=== PATIENT | male | born 1995 | race Caucasian/White ===

== ENCOUNTER 2017-04-19 07:27 | Emergency (ER) | payer BC ==
[~2017-04-19] VITALS: Ht 165.1 cm; Wt 79.0 kg
[~2017-04-19 07:27] MED LIST: PROZ20CA11 PO; RISP0.5T2 PO; Z.0.NO CURRENT MEDS
[2017-04-19 07:30] VITALS: BP 135/92; PULSE 86; RESP 16; TEMP 98.7; O2SAT 96
--- NOTE | 2017-04-19 08:12 | PD ---
HPI Chief Complaint: Cold / Flu Symptoms Time Seen by Provider: 07:58 Travel History International Travel<30 days: No Contact w/Intl Traveler<30days: No Traveled to known affect area: No History of Present Illness HPI This 22-year-old male is complaining of sore throat. He says he started having a sore throat around 5:00 in the afternoon. It has bothered him throughout the night. He's not sure if he is had a fever. He says multiple friends with the flu. He's had a mild cough. PFSH Past Medical History Cancer: No Cardiovascular Problems: No Diabetes: No Headaches: No Migraines: No Seizures: No Thyroid Disease: No Ulcer: No Past Surgical History Section: No Social History Alcohol Use: No Tobacco Use: Yes Substance Use: Yes (MARIJUANA ABOUT A YEAR AGO) Allergies-Medications (Allergen,Severity, Reaction): Coded Allergies: No Known Allergies (Unverified Adverse Reaction, Unknown, 04/19/17) Reported Meds & Prescriptions Reported Meds & Active Scripts Active Reported Prozac (Fluoxetine HCl) 20 Mg Cap 20 Mg PO Q 7AM Risperdal (Risperidone) 0.5 Mg Tab 0.5 Mg PO Q 7 AM AND 16 No Current Meds (Miscellaneous Medication) Misc Review of Systems General / Constitutional: No: Fever, Chills Eyes: No: Diploplia, Blurred Vision HENT: Positive: Sore Throat, No: Headaches Cardiovascular: No: Chest Pain or Discomfort Respiratory: Positive: Cough Gastrointestinal: No: Vomiting, Diarrhea Genitourinary: No: Frequency, Dysuria Musculoskeletal: No: Myalgias, Arthralgias Skin: No Rash, No Itching Endocrine: No: Heat Intolerance, Cold Intolerance Hematologic/Lymphatic: No: Easy Bruising Physical Exam Narrative GENERAL: Well-developed male SKIN: Focused skin assessment warm/dry. HEAD: Atraumatic. Normocephalic. EYES: Pupils equal and round. No scleral icterus. No injection or drainage. ENT: No nasal bleeding or discharge. Mucous membranes pink and moist. Posterior pharynx is erythematous with some exudate NECK: Trachea midline. No JVD. CARDIOVASCULAR: Regular rate and rhythm. No murmur appreciated. RESPIRATORY: No accessory muscle use. Clear to auscultation. Breath sounds equal bilaterally. GASTROINTESTINAL: Abdomen soft, non-tender, nondistended. Hepatic and splenic margins not palpable. MUSCULOSKELETAL: No obvious deformities. No clubbing. No cyanosis. No edema. NEUROLOGICAL: Awake and alert. No obvious cranial nerve deficits. Motor grossly within normal limits. Normal speech. PSYCHIATRIC: Appropriate mood and affect; insight and judgment normal. Data Data Last Documented VS Vital Signs Date Time Temp Pulse Resp B/P (MAP) Pulse Ox O2 Delivery O2 Flow Rate FiO2 04/19/17 07:30 98.7 86 16 135/92 (106) 96 Orders Orders Group A Rapid Strep Screen (04/19/17 07:54) Influenzae A/B Antigen (04/19/17 08:02) MDM Medical Decision Making Medical Screen Exam Complete: Yes Emergency Medical Condition: Yes Medical Record Reviewed: Yes Differential Diagnosis Differential includes influenza, strep throat, viral syndrome Narrative Course Test for strep is positive. He'll be treated with penicillin Diagnosis Primary Impression: Strep throat Additional Instructions: Take Tylenol or Motrin for fever and pain Scripts Penicillin V Potassium (Penicillin V Potassium) 500 Mg Tab 500 MG PO Q6H for Infection, #40 TAB 0 Refills Prov: Dejuan Zamora MD 04/19/17 Disposition: 01 DISCHARGE HOME Condition: Stable Dejuan Zamora MD Apr 19, 2017 08:12
[2017-04-19] MEDS ORDERED: PENI500T PO (08:24)
[2017-04-19] MEDS ORDERED: ADDE20XR PO (08:25)
== END 2017-04-19 08:37 | disposition home or self-care (01) ==
LOC: PHED 07:27
DX: J02.0 Streptococcal pharyngitis (principal); B95.0 Streptococcus, group A, as the cause of diseases classified elsewhere; Z72.0 Tobacco use
CPT/HCPCS: 87804; 87880; 99283